=== PATIENT | male | born 1990 | race American Indian/Alaskan Native ===

== ENCOUNTER 2018-01-13 07:17 | Emergency (ER) | payer OTHER ==
[2018-01-13] MEDS ORDERED: Metoclopramide 10 MG/2 ML SDV IVPUSH ONE (07:26)
[2018-01-13] MEDS ORDERED: HYDROmorphone 0.5 MG/0.5 ML SYRINGE IVPUSH ONE (07:26)
[2018-01-13] MEDS ORDERED: Dextrose 5%-0.9% NaCl 1,000 ML IV SCH (07:30)
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
--- NOTE | 2018-01-13 08:49 | CT ---
CT thoracic spine Technique: Multiple axial sections were obtained through the thoracic spine. Reconstructed coronal and sagittal images were reviewed. Comparison: No prior thoracic spine imaging. Findings: Mild scoliosis is seen. Vertebral body heights are maintained. Minimal Schmorl node deformities are incidentally noted within the lower thoracic spine. Minimal disc space narrowing is seen within the mid thoracic spine. No fracture is identified. No bony central or bony neural foraminal stenosis is seen. Posterior disks would be better seen on MRI but no gross disc herniation is seen. Slight degenerative apophyseal change is noted at T11-12 and T12-L1. 2 adjacent or possibly a lobulated nodule is noted within the right upper lung. This shows no calcifications and measures approximately 7.6 mm. Given the patient's age this most likely represents noncalcified granuloma(s). Impression: 1. Mild degenerative change and mild scoliosis. 2. Nodules within the upper right lung most likely incidental. 3. No additional abnormality is seen on CT study of the thoracic spine. Diagnostic code #3
--- NOTE | 2018-01-13 08:49 | CT ---
CT lumbar spine Technique: Multiple axial sections through the lumbar spine were obtained. Intravenous contrast was not utilized. Reconstructed coronal and sagittal images were reviewed. Comparison: No prior lumbar spine study is available. Findings: Posterior disc space narrowing is noted at L1-2 through L4-5. Moderate disc space narrowing is noted at L5-S1. Vacuum disc phenomena is seen within the L3-4 disc as well as more prominently within the L5-S1 disc. Posterior spurring is noted at L5-S1. Mild diffuse circumferential disc bulging is seen. Moderate central canal stenosis noted at L5-S1 due to posterior spurring. No other levels of central canal stenosis is seen. There is bilateral neural foraminal narrowing at L5-S1 seen. Impression: 1. Degenerative change as noted above most severe at L5-S1 causing moderate central canal stenosis and bilateral neural foraminal stenosis. Diagnostic code #3
[2018-01-13 09:45] VITALS: BP 104/72
--- NOTE | 2018-01-14 07:30 | CR ---
Right forearm: Two views of the right forearm were obtained. Comparison: No prior forearm study. Artifact is seen overlying the fifth metacarpal. Radius and ulna appear intact without additional fracture. Impression: 1. Nothing acute is seen on two-view right forearm study. Diagnostic code #1
--- NOTE | 2018-01-14 07:30 | CR ---
Left knee: AP and lateral views of the left knee were obtained. Comparison: No prior knee exam. Medial and lateral joint compartments are maintained in height. No joint effusion is seen. No fracture or other bony abnormality is identified. Impression: 1. No abnormality is seen on two-view left knee exam. Diagnostic code #1
--- NOTE | 2018-01-14 07:30 | CR ---
Right shoulder: Three views of the right shoulder were obtained. Comparison: No prior right shoulder exam. Glenohumeral and acromioclavicular joint appear within normal limits. No fracture, dislocation or other bony abnormality is seen. Impression: 1. No abnormality is seen on right shoulder study. Diagnostic code #1
--- NOTE | 2018-01-14 07:30 | CR ---
Chest: AP view of the chest was obtained. Comparison: Prior chest x-ray of 11/15/14. Heart size and mediastinum are normal. No acute parenchymal densities are seen. No acute bony abnormality is appreciated on this study. Impression: 1. Nothing acute is seen on frontal chest x-ray. Diagnostic code #1
--- NOTE | 2018-01-14 07:30 | CR ---
Right humerus: Two views of the right humerus were obtained. Comparison: No previous study. No fracture or other abnormality is seen. Elbow not well seen. Impression: 1. Elbow not well seen. Nothing acute is otherwise seen on two-view right humerus study. Diagnostic code #2
--- NOTE | 2018-01-14 07:30 | CR ---
Right hand: Four views of the right hand were obtained. Comparison: No prior right hand exam. Deformity is seen of the fifth metacarpal compatible with old healed fracture. Overlying artifact is seen. No acute fracture, dislocation or other bony abnormality is seen. Impression: 1. Old healed fifth metacarpal fracture with residual deformity. 2. No acute abnormality is appreciated on right hand exam. Diagnostic code #2
== END 2018-01-13 09:32 | disposition home or self-care (01) ==
LOC: JD.ED 07:17
DX: S40.011A Contusion of right shoulder, initial encounter (principal); S20.221A Contusion of right back wall of thorax, initial encounter; S80.02XA Contusion of left knee, initial encounter; S50.11XA Contusion of right forearm, initial encounter; F10.129 Alcohol abuse with intoxication, unspecified; Y90.8 Blood alcohol level of 240 mg/100 ml or more; W18.30XA Fall on same level, unspecified, initial encounter
CPT/HCPCS: 36415; 71045; 72128; 72131; 73030; 73060; 73090; 73130; 73560; 80053; 82550; 83690; 85007; 85027; 85610; 96361; 96374; 96375; 99285; G0480; J1170; J2765; J7042; 99284

== ENCOUNTER 2022-05-16 10:08 | Emergency (ER) | payer SELFPAY ==
[2022-05-16 11:00] VITALS: BP 123/73; PULSE 89
== END 2022-05-16 14:00 ==
LOC: JD.ED 10:08 → MERGE 10:08 → JD.ED 14:00
DX: Z02.89 Encounter for other administrative examinations (principal)
CPT/HCPCS: 99283

== ENCOUNTER 2022-11-02 11:46 | Emergency (ER) | payer SELFPAY ==
[2022-11-02 11:55] VITALS: BP 131/74; PULSE 92
== END 2022-11-02 14:14 | disposition home or self-care (01) ==
LOC: JD.ED 11:46
DX: S70.12XA Contusion of left thigh, initial encounter (principal); E66.9 Obesity, unspecified; Z87.891 Personal history of nicotine dependence; Z68.43 Body mass index [BMI] 50.0-59.9, adult; Y04.0XXA Assault by unarmed brawl or fight, initial encounter
CPT/HCPCS: 73552-26-LT; 73552-LT; 93971-26-LT; 93971-LT; 99283; 99284

== ENCOUNTER 2023-03-25 15:46 | Emergency (ER) | payer SELFPAY ==
[2023-03-25] MEDS ORDERED: Diphtheria,Pertussis(Acell),Tetanus Vaccine 0.5 ML Syringe IM ONE (18:39)
[2023-03-25] MEDS ORDERED: Cephalexin 500 MG Cap PO ONE (19:47)
[2023-03-25] MEDS ORDERED: Ibuprofen 600 MG Tab PO ONE (20:02)
[2023-03-25] MEDS ORDERED: Acetaminophen 325 MG Tab PO ONE (20:02)
[2023-03-25 20:32] VITALS: BP 139/87; PULSE 78
== END 2023-03-25 20:30 | disposition home or self-care (01) ==
LOC: JD.ED 15:46
DX: S02.2XXA Fracture of nasal bones, initial encounter for closed fracture (principal); S01.81XA Laceration without foreign body of other part of head, initial encounter; H11.32 Conjunctival hemorrhage, left eye; E66.9 Obesity, unspecified; Z68.43 Body mass index [BMI] 50.0-59.9, adult; Z23 Encounter for immunization; Y04.2XXA Assault by strike against or bumped into by another person, initial encounter
CPT/HCPCS: 70160; 90471; 90715; 99284; A9270; 99283